=== PATIENT | male | born 1950 | race Caucasian/White ===

== ENCOUNTER 2019-08-21 09:54 | Outpatient (RCR) | payer MEDICARE | END 2019-08-25 | LOC: PT 09:54 | PROVIDERS: ATTEND Orthopaedic Surgery | DX: Z96.651 Presence of right artificial knee joint (principal); Z96.652 Presence of left artificial knee joint; M62.81 Muscle weakness (generalized); M25.561 Pain in right knee; M25.562 Pain in left knee ==

== ENCOUNTER → 2019-09-25 | Outpatient (RCR) | payer MEDICARE | LOC: PT 08-26 10:23 | PROVIDERS: ATTEND Orthopaedic Surgery | DX: M25.562 Pain in left knee (principal); M25.561 Pain in right knee; M62.81 Muscle weakness (generalized); Z96.652 Presence of left artificial knee joint; Z96.651 Presence of right artificial knee joint ==

== ENCOUNTER 2019-10-02 09:58 | Outpatient (RCR) | payer MEDICARE | END 2019-10-25 | LOC: PT 09:58 | PROVIDERS: ATTEND Orthopaedic Surgery | DX: Z96.652 Presence of left artificial knee joint (principal); Z96.651 Presence of right artificial knee joint; Z47.1 Aftercare following joint replacement surgery; M25.562 Pain in left knee; M25.561 Pain in right knee; M62.81 Muscle weakness (generalized) ==

== ENCOUNTER 2022-06-23 15:00 | Outpatient (RCR) | payer MEDICARE | END 2022-06-25 | LOC: PT 15:00 | PROVIDERS: ATTEND Orthopaedic Surgery | DX: Z96.653 Presence of artificial knee joint, bilateral (principal) ==

== ENCOUNTER → 2022-07-26 | Outpatient (RCR) | payer MEDICARE | LOC: PT 06-26 10:07 | PROVIDERS: ATTEND Orthopaedic Surgery | DX: Z96.653 Presence of artificial knee joint, bilateral (principal) ==

== ENCOUNTER 2022-08-04 14:57 | Outpatient (RCR) | payer MEDICARE | END 2022-08-25 | LOC: PT 14:57 | PROVIDERS: ATTEND Orthopaedic Surgery | DX: Z96.653 Presence of artificial knee joint, bilateral (principal); M62.81 Muscle weakness (generalized); R26.2 Difficulty in walking, not elsewhere classified ==

== ENCOUNTER 2025-02-01 23:50 | Inpatient (IN) | payer MEDICARE ==
[~2025-02-01] VITALS: Ht 167.6 cm; Wt 90.7 kg
[2025-02-01 23:59] VITALS: RESP 20; TEMP 98.3
[2025-02-02] VITALS (9 sets, daily range): BP systolic 137–161; BP diastolic 64–94; PULSE 71–104; RESP 18–20; TEMP 97.2–98.7; O2SAT 96–99
[2025-02-02] MEDS: Morphine 4mg INJECTION 4 MG/ML INJ IM STA (01:04)
[2025-02-02 02:33] LABS: TROPONIN I 0.002 ng/mL (0-0.300)
[2025-02-02] MEDS ORDERED: HUMULIN 70100 UNIT/1 SC ×3 (03:20→03:21)
[2025-02-02] MEDS ORDERED: ROSUVASTATIN CA10 MG PO (03:22)
[2025-02-02] MEDS ORDERED: LISINOPRIL10 MG PO (03:23)
[2025-02-02] MEDS ORDERED: FARXIGA10 MG PO (03:24)
[2025-02-02] MEDS ORDERED: TRICOR145 MG PO (03:25)
[2025-02-02] MEDS ORDERED: OMEGA 3 1,0001 EACH PO (03:26)
[2025-02-02] MEDS: SODIUM CHLORIDE 0.9% 1000ML 1,000 ML IV SCH (03:51)
[2025-02-02] MEDS: PIOGLITAZONE HCL 45 MG TAB PO SCH (13:23)
[2025-02-02] MEDS: SITAGLIPTIN 100 MG TAB PO SCH (13:23)
[2025-02-02] MEDS: Morphine 2mg Syringe 2 MG/ML SYR IV PRN (13:24)
[2025-02-02] MEDS: ONDANSETRON HCL INJ 2MG/ML 2ML 2 MG/ML VIAL IV PRN (13:24)
[2025-02-02] MEDS: LISINOPRIL 20 MG TAB PO SCH (13:24)
[2025-02-02 15:47] LABS: TROPONIN I 0.003 ng/mL (0-0.300)
[2025-02-02] MEDS: HYDROMORPHONE 2MG/ML IV PRN (16:56)
[2025-02-02] MEDS: HUMULIN 70/30 VIAL SQ SCH (17:14)
[2025-02-02] MEDS ORDERED: VASCEPA1 GM PO (21:34)
[2025-02-02] MEDS ORDERED: FLOMAX0.4 MG PO (21:35)
[2025-02-03] VITALS (7 sets, daily range): BP systolic 142–153; BP diastolic 58–76; PULSE 79–88; RESP 16–20; TEMP 97.9–99; O2SAT 95–98
[2025-02-03 05:17] LABS: BASOPHILS % 0.2 % (0.0-1.0); EOSINOPHILS # (AUTO) 0.1 (0.0-0.4); EOSINOPHILS % 0.5 % (0.0-6.0); HEMATOCRIT 33.7 % (38.2-49.6); HEMOGLOBIN 10.5 g/dL (14.0-18.0); LYMPHOCYTES # (AUTO) 2.6 (1.0-3.2); MEAN CORPUSCULAR HEMOGLOBIN 26.9 pg (28-32); MEAN CORPUSCULAR HGB CONC 31.2 g/dL (31-35); MEAN CORPUSCULAR VOLUME 86.2 fL (81-99); MONOCYTES # (AUTO) 0.9 (0.2-0.8); NEUTROPHILS # (AUTO) 8.5 (2.1-6.9); NEUTROPHILS % 69.6 % (38.7-80.0); PLATELET COUNT 158 x10e3/uL (140-360); RED BLOOD COUNT 3.91 x10e6/uL (4.3-5.7); RED CELL DISTRIBUTION WIDTH 13.5 % (11.7-14.4); WHITE BLOOD COUNT 12.26 x10e3/uL (4.8-10.8)
[2025-02-03 05:44] LABS: ALBUMIN 3.4 g/dL (3.5-5.0); ALBUMIN/GLOBULIN RATIO 1.2 (0.8-2.0); ANION GAP 13.5 mmol/L (8-16); BILIRUBIN,TOTAL 0.6 mg/dL (0.2-1.2); CALCIUM 8.7 mg/dL (8.4-10.2); CREATININE, SERUM 1.25 mg/dL (0.72-1.25); POTASSIUM 4.5 mmol/L (3.5-5.1); TOTAL PROTEIN 6.3 g/dL (6.5-8.1)
[2025-02-03 06:12] LABS: TROPONIN I 0.013 ng/mL (0-0.300)
[2025-02-03] MEDS: FENOFIBRATE 145 MG TAB PO SCH (08:46)
[2025-02-03] MEDS: OMEGA 3 POLYUNSAT FATTY ACIDS 1000 MG SOFTGEL PO SCH (08:47)
[2025-02-03] MEDS ORDERED: DEXTROSE 50% SYRINGE 50 ML IV PRN (10:45)
[2025-02-03] MEDS: INSULIN LISPRO 100 UNIT/1 ML 3ML VIAL SQ SCH (11:30)
[2025-02-03] MEDS ORDERED: CYCLOBENZAPRINE HCL 10 MG TAB PO PRN (21:30)
[2025-02-04] VITALS (7 sets, daily range): BP systolic 136–155; BP diastolic 61–68; PULSE 80–94; RESP 16–20; TEMP 98–98.5; O2SAT 96–99
[2025-02-04 05:10] LABS: BASOPHILS % 0.3 % (0.0-1.0); EOSINOPHILS # (AUTO) 0.2 (0.0-0.4); EOSINOPHILS % 1.9 % (0.0-6.0); HEMATOCRIT 30.7 % (38.2-49.6); HEMOGLOBIN 9.7 g/dL (14.0-18.0); LYMPHOCYTES # (AUTO) 2.8 (1.0-3.2); LYMPHOCYTES % 26.7 % (18.0-39.1); MEAN CORPUSCULAR HEMOGLOBIN 26.9 pg (28-32); MEAN CORPUSCULAR HGB CONC 31.6 g/dL (31-35); MEAN CORPUSCULAR VOLUME 85.3 fL (81-99); MONOCYTES # (AUTO) 0.7 (0.2-0.8); MONOCYTES % 6.8 % (4.4-11.3); NEUTROPHILS # (AUTO) 6.6 (2.1-6.9); NEUTROPHILS % 63.9 % (38.7-80.0); PLATELET COUNT 193 x10e3/uL (140-360); RED CELL DISTRIBUTION WIDTH 13.5 % (11.7-14.4); WHITE BLOOD COUNT 10.38 x10e3/uL (4.8-10.8)
[2025-02-04 05:43] LABS: ANION GAP 14.5 mmol/L (8-16); CALCIUM 8.4 mg/dL (8.4-10.2); CREATININE, SERUM 1.42 mg/dL (0.72-1.25); POTASSIUM 4.5 mmol/L (3.5-5.1)
[2025-02-05 04:39] VITALS: BP 140/82; PULSE 82; RESP 18; TEMP 98.3; O2SAT 97
[2025-02-05 05:25] LABS: BASOPHILS % 0.3 % (0.0-1.0); EOSINOPHILS # (AUTO) 0.3 (0.0-0.4); EOSINOPHILS % 3.9 % (0.0-6.0); HEMATOCRIT 28.2 % (38.2-49.6); HEMOGLOBIN 9.1 g/dL (14.0-18.0); LYMPHOCYTES # (AUTO) 2.6 (1.0-3.2); LYMPHOCYTES % 32.9 % (18.0-39.1); MEAN CORPUSCULAR HEMOGLOBIN 27.1 pg (28-32); MEAN CORPUSCULAR HGB CONC 32.3 g/dL (31-35); MEAN CORPUSCULAR VOLUME 83.9 fL (81-99); MONOCYTES # (AUTO) 0.5 (0.2-0.8); MONOCYTES % 6.5 % (4.4-11.3); NEUTROPHILS # (AUTO) 4.5 (2.1-6.9); NEUTROPHILS % 56.1 % (38.7-80.0); PLATELET COUNT 198 x10e3/uL (140-360); RED BLOOD COUNT 3.36 x10e6/uL (4.3-5.7); RED CELL DISTRIBUTION WIDTH 13.3 % (11.7-14.4); WHITE BLOOD COUNT 7.99 x10e3/uL (4.8-10.8)
[2025-02-05 05:50] LABS: ANION GAP 14.1 mmol/L (8-16); CALCIUM 8.4 mg/dL (8.4-10.2); CREATININE, SERUM 1.07 mg/dL (0.72-1.25); POTASSIUM 4.1 mmol/L (3.5-5.1)
[2025-02-05 09:03] VITALS: BP 156/69; PULSE 79; RESP 18; TEMP 98.2; O2SAT 97
[2025-02-05 10:12] VITALS: BP 156/69; PULSE 79; RESP 18; TEMP 98.2; O2SAT 97
[2025-02-05] MEDS ORDERED: GADOBENATE DIMEGLUMINE 1 ML IV ONE (12:13)
[2025-02-05 12:16] VITALS: BP 150/66; PULSE 79; RESP 20; TEMP 97.9; O2SAT 96
[2025-02-05] MEDS: HYDROCODONE/APAP 5MG-325MG TAB PO PRN (12:18)
[2025-02-05] MEDS ORDERED: IOPAMIDOL 370 MG/ML 100 ML INFUS..BTL INJ ONE (12:34)
[2025-02-05 17:28] VITALS: BP 158/61; PULSE 74; RESP 20; TEMP 96.8; O2SAT 99
[2025-02-05 20:00] VITALS: BP 147/88; PULSE 79; RESP 20; TEMP 98.2; O2SAT 98
[2025-02-06] VITALS: BP 167/73; PULSE 85; RESP 18; TEMP 98.3; O2SAT 98
[2025-02-06 05:21] LABS: BASOPHILS % 0.4 % (0.0-1.0); EOSINOPHILS # (AUTO) 0.4 (0.0-0.4); EOSINOPHILS % 4.6 % (0.0-6.0); HEMATOCRIT 29.3 % (38.2-49.6); HEMOGLOBIN 9.3 g/dL (14.0-18.0); LYMPHOCYTES # (AUTO) 2.9 (1.0-3.2); LYMPHOCYTES % 33.5 % (18.0-39.1); MEAN CORPUSCULAR HGB CONC 31.7 g/dL (31-35); MEAN CORPUSCULAR VOLUME 84.9 fL (81-99); MONOCYTES # (AUTO) 0.5 (0.2-0.8); MONOCYTES % 6.3 % (4.4-11.3); NEUTROPHILS # (AUTO) 4.7 (2.1-6.9); PLATELET COUNT 203 x10e3/uL (140-360); RED BLOOD COUNT 3.45 x10e6/uL (4.3-5.7); RED CELL DISTRIBUTION WIDTH 13.2 % (11.7-14.4); WHITE BLOOD COUNT 8.56 x10e3/uL (4.8-10.8)
[2025-02-06 05:53] LABS: ALBUMIN 2.8 g/dL (3.5-5.0); BILIRUBIN,TOTAL 0.4 mg/dL (0.2-1.2); CALCIUM 8.5 mg/dL (8.4-10.2); CREATININE, SERUM 0.96 mg/dL (0.72-1.25); TOTAL PROTEIN 5.6 g/dL (6.5-8.1)
[2025-02-06 08:29] LABS: MAGNESIUM 1.8 MG/DL (1.3-2.1); PHOSPHORUS 2.7 MG/DL (2.3-4.7)
[2025-02-06 08:44] VITALS: BP 165/84; PULSE 71; RESP 17; TEMP 97.6; O2SAT 98
[2025-02-06 10:00] VITALS: BP 165/84; PULSE 71; RESP 17; TEMP 97.6; O2SAT 98
[2025-02-06 12:00] VITALS: BP 151/71; PULSE 79; RESP 18; TEMP 97.9; O2SAT 96
[2025-02-06 17:03] VITALS: BP 178/74; PULSE 73; RESP 19; TEMP 98.5; O2SAT 94
[2025-02-06 20:00] VITALS: BP 134/82; PULSE 80; RESP 18; TEMP 98.4; O2SAT 98
[2025-02-07 08:19] VITALS: BP 159/72; PULSE 74; RESP 18; TEMP 97.6; O2SAT 96
[2025-02-07 08:55] VITALS: BP 159/72; PULSE 74; RESP 18; TEMP 97.4; O2SAT 98
[2025-02-07 11:06] VITALS: BP 154/73; PULSE 78; RESP 18; TEMP 98.2; O2SAT 95
[2025-02-07] MEDS ORDERED: CYCLOBENZAPRINE10 MG PO (13:58)
[2025-02-07] MEDS ORDERED: SODIUM CHLORIDE50 M1 IV (13:58)
[2025-02-07] MEDS ORDERED: JANUVIA100 MG PO (13:58)
[2025-02-07] MEDS ORDERED: ONDANSETRON4 MG/2 M1 IV (13:58)
[2025-02-07] MEDS ORDERED: Insulin Lispro SQ (13:58)
[2025-02-07] MEDS ORDERED: ACTOS45 MG PO (13:58)
[2025-02-07] MEDS ORDERED: DEXTROSE 50%-WA50 M1 IV (13:58)
[2025-02-07] MEDS ORDERED: HDR2V IV (13:58)
[2025-02-07] MEDS ORDERED: HYDROCODON-ACE1 EA11 PO (13:58)
== END 2025-02-07 16:45 | DRG 563 ==
LOC: ER 23:54 → ERHOLD 02-02 01:04 → MED/SURG 02-02 03:46
PROVIDERS: ADMIT Internal Medicine; ATTEND Internal Medicine
PROC: 2W38XYZ Immobilization of Right Upper Extremity using Other Device (ICD-10-PCS; principal; 2025-02-01)
DX: S42.211A Unspecified displaced fracture of surgical neck of right humerus, initial encounter for closed fracture (principal); S32.591A Other specified fracture of right pubis, initial encounter for closed fracture; R62.7 Adult failure to thrive; S42.251A Displaced fracture of greater tuberosity of right humerus, initial encounter for closed fracture; E11.9 Type 2 diabetes mellitus without complications; I10 Essential (primary) hypertension; E78.00 Pure hypercholesterolemia, unspecified; S73.191A Other sprain of right hip, initial encounter; M25.561 Pain in right knee; F03.A0 Unspecified dementia, mild, without behavioral disturbance, psychotic disturbance, mood disturbance, and anxiety; Z79.4 Long term (current) use of insulin; W18.09XA Striking against other object with subsequent fall, initial encounter; Y92.481 Parking lot as the place of occurrence of the external cause; Z96.653 Presence of artificial knee joint, bilateral
CPT/HCPCS: 36415; 72148; 72192; 72197; 74177; 80048; 80053; 82550; 82948; 83036; 83735; 84100; 84443; 84484; 85025; 96372; 99252; 99284; J1171; J2270; J2405; J7030; Q9967

== ENCOUNTER 2025-02-12 13:28 | Inpatient (IN) | payer MEDICARE ==
[~2025-02-12] VITALS: Ht 167.6 cm; Wt 90.7 kg
[~2025-02-12 13:28] MED LIST: ACTOS45 MG PO; CYCLOBENZAPRINE10 MG PO; DEXTROSE 50%-WA50 M1 IV; FARXIGA10 MG PO; FLOMAX0.4 MG PO; HDR2V IV; HUMULIN 70100 UNIT/1 SC; HYDROCODON-ACE1 EA11 PO; Insulin Lispro SQ; JANUVIA100 MG PO; LISINOPRIL10 MG PO; OMEGA 3 1,0001 EACH PO; ONDANSETRON4 MG/2 M1 IV; ROSUVASTATIN CA10 MG PO; SODIUM CHLORIDE50 M1 IV; TRICOR145 MG PO; VASCEPA1 GM PO
[2025-02-12 14:49] LABS: BASOPHILS % 0.2 % (0.0-1.0); EOSINOPHILS % 7.4 % (0.0-6.0); HEMATOCRIT 34.8 % (38.2-49.6); HEMOGLOBIN 11.2 g/dL (14.0-18.0); LYMPHOCYTES # (AUTO) 2.8 (1.0-3.2); LYMPHOCYTES % 21.5 % (18.0-39.1); MEAN CORPUSCULAR HEMOGLOBIN 27.1 pg (28-32); MEAN CORPUSCULAR HGB CONC 32.2 g/dL (31-35); MEAN CORPUSCULAR VOLUME 84.1 fL (81-99); MONOCYTES # (AUTO) 0.7 (0.2-0.8); MONOCYTES % 5.1 % (4.4-11.3); NEUTROPHILS # (AUTO) 8.6 (2.1-6.9); NEUTROPHILS % 65.6 % (38.7-80.0); PLATELET COUNT 316 x10e3/uL (140-360); RED BLOOD COUNT 4.14 x10e6/uL (4.3-5.7); RED CELL DISTRIBUTION WIDTH 13.3 % (11.7-14.4); WHITE BLOOD COUNT 13.09 x10e3/uL (4.8-10.8)
[2025-02-12 15:08] LABS: INR 0.98; PARTIAL THROMBOPLASTIN TIME 28.6 seconds (23.8-35.5); PROTHROMBIN TIME 13.6 seconds (11.9-14.5)
[2025-02-12 15:17] LABS: ALBUMIN 3.6 g/dL (3.5-5.0); ALBUMIN/GLOBULIN RATIO 1.1 (0.8-2.0); ANION GAP 16.3 mmol/L (8-16); BILIRUBIN,TOTAL 0.5 mg/dL (0.2-1.2); CALCIUM 9.4 mg/dL (8.4-10.2); CREATININE, SERUM 1.55 mg/dL (0.72-1.25); POTASSIUM 4.3 mmol/L (3.5-5.1); TOTAL PROTEIN 6.9 g/dL (6.5-8.1)
[2025-02-12 15:23] LABS: TROPONIN I 0.011 ng/mL (0-0.300)
[2025-02-12] MEDS ORDERED: SODIUM CHLORIDE 0.9% 100 ML ONE (15:23)
[2025-02-12] MEDS ORDERED: IOPAMIDOL 370 MG/ML 100 ML INFUS..BTL INJ ONE (15:23)
[2025-02-12] MEDS ORDERED: SODIUM CHLORIDE 0.9% 1000ML 1,000 ML ONE (16:47)
[2025-02-12] MEDS: SODIUM CHLORIDE 0.9% 1000ML 1,000 ML IV STA (16:54)
[2025-02-12 17:33] LABS: BILIRUBIN,URINE NEGATIVE (NEGATIVE); CLARITY,URINE CLEAR (CLEAR); COLOR,URINE YELLOW (YELLOW); GLUCOSE, URINE 1+ (NEGATIVE); KETONES,URINE NEGATIVE (NEGATIVE); LEUKOCYTE ESTERASE ,URINE NEGATIVE (NEGATIVE); NITRITE,URINE NEGATIVE (NEGATIVE); PH,URINE 5 (5 - 7); PROTEIN,URINE DIPSTICK NEGATIVE (NEGATIVE); URINE UROBILINOGEN 0.2 mg/dL (0.2 - 1)
[2025-02-12] MEDS ORDERED: DEXTROSE 50% SYRINGE 50 ML IV PRN (17:45)
[2025-02-12] MEDS ORDERED: ONDANSETRON HCL INJ 2MG/ML 2ML 2 MG/ML VIAL IV PRN (17:45)
[2025-02-12 17:49] LABS: BACTERIA,URINE FEW /HPF; EPITHELIAL CELLS,URINE FEW /LPF; RBC,URINE 0-5 /HPF (0-5); WBC,URINE (MAN) 0-5 /HPF (0-5)
[2025-02-12] MEDS: SODIUM CHLORIDE 0.9% 1000ML 1,000 ML IV SCH (18:23)
[2025-02-12 18:30] VITALS: PULSE 82; RESP 19; TEMP 98
[2025-02-12 22:00] VITALS: BP 138/60; PULSE 75; RESP 18; TEMP 98.1; O2SAT 100
[2025-02-12] MEDS ORDERED: OZEMPIC0.25 MG/02 SC (22:12)
[2025-02-12] MEDS: INSULIN LISPRO 100 UNIT/1 ML 3ML VIAL SQ SCH (22:22)
[2025-02-13] VITALS (8 sets, daily range): BP systolic 124–145; BP diastolic 53–75; PULSE 68–83; RESP 18–20; TEMP 97.2–98.1; O2SAT 97–100
[2025-02-13 05:53] LABS: BASOPHILS % 0.2 % (0.0-1.0); EOSINOPHILS # (AUTO) 1.1 (0.0-0.4); EOSINOPHILS % 8.7 % (0.0-6.0); HEMATOCRIT 28.5 % (38.2-49.6); HEMOGLOBIN 9.3 g/dL (14.0-18.0); LYMPHOCYTES # (AUTO) 2.5 (1.0-3.2); LYMPHOCYTES % 20.6 % (18.0-39.1); MEAN CORPUSCULAR HEMOGLOBIN 27.4 pg (28-32); MEAN CORPUSCULAR HGB CONC 32.6 g/dL (31-35); MEAN CORPUSCULAR VOLUME 83.8 fL (81-99); MONOCYTES # (AUTO) 0.7 (0.2-0.8); MONOCYTES % 5.8 % (4.4-11.3); NEUTROPHILS # (AUTO) 7.8 (2.1-6.9); NEUTROPHILS % 64.3 % (38.7-80.0); PLATELET COUNT 272 x10e3/uL (140-360); RED CELL DISTRIBUTION WIDTH 13.4 % (11.7-14.4); WHITE BLOOD COUNT 12.09 x10e3/uL (4.8-10.8)
[2025-02-13 06:21] LABS: ALBUMIN 2.9 g/dL (3.5-5.0); ANION GAP 12.3 mmol/L (8-16); BILIRUBIN,TOTAL 0.4 mg/dL (0.2-1.2); CALCIUM 8.5 mg/dL (8.4-10.2); CREATININE, SERUM 1.26 mg/dL (0.72-1.25); POTASSIUM 4.3 mmol/L (3.5-5.1); TOTAL PROTEIN 5.7 g/dL (6.5-8.1)
[2025-02-13] MEDS: TAMSULOSIN HCL 0.4 MG CAP PO SCH (10:29)
[2025-02-13] MEDS: FENOFIBRATE 145 MG TAB PO SCH (10:29)
[2025-02-13] MEDS: SODIUM BICARBONATE 8.4% SYRING 50 ML in SODIUM CHLORIDE 0.45% 1,000 ML IV ONE (10:30)
[2025-02-13] MEDS: INSULIN GLARGINE 100 UNITS/ML VIAL SQ SCH (21:03)
[2025-02-14] VITALS (7 sets, daily range): BP systolic 105–160; BP diastolic 32–71; PULSE 57–83; RESP 16–20; TEMP 97.3–98.6; O2SAT 97–100
[2025-02-14 03:23] LABS: % IRON SATURATION 14 % (15-50); IRON 48 ug/dL (65-175); TOTAL IRON BINDING CAPACITY 339 ug/dL (261-478); TRANSFERRIN 242 mg/dL (174-364)
[2025-02-14 03:56] LABS: FOLATE 13.6 ng/mL (7.0-15.4)
[2025-02-14 06:28] LABS: BASOPHILS % 0.2 % (0.0-1.0); EOSINOPHILS # (AUTO) 1.1 (0.0-0.4); EOSINOPHILS % 11.6 % (0.0-6.0); HEMOGLOBIN 9.4 g/dL (14.0-18.0); LYMPHOCYTES # (AUTO) 2.4 (1.0-3.2); LYMPHOCYTES % 26.5 % (18.0-39.1); MEAN CORPUSCULAR HGB CONC 32.4 g/dL (31-35); MEAN CORPUSCULAR VOLUME 83.3 fL (81-99); MONOCYTES # (AUTO) 0.6 (0.2-0.8); MONOCYTES % 6.1 % (4.4-11.3); NEUTROPHILS # (AUTO) 5.1 (2.1-6.9); NEUTROPHILS % 55.3 % (38.7-80.0); PLATELET COUNT 279 x10e3/uL (140-360); RED BLOOD COUNT 3.48 x10e6/uL (4.3-5.7); RED CELL DISTRIBUTION WIDTH 13.2 % (11.7-14.4); WHITE BLOOD COUNT 9.16 x10e3/uL (4.8-10.8)
[2025-02-14 06:48] LABS: ALBUMIN/GLOBULIN RATIO 1.1 (0.8-2.0); ANION GAP 14.1 mmol/L (8-16); BILIRUBIN,TOTAL 0.4 mg/dL (0.2-1.2); CALCIUM 8.5 mg/dL (8.4-10.2); CREATININE, SERUM 1.04 mg/dL (0.72-1.25); POTASSIUM 4.1 mmol/L (3.5-5.1); TOTAL PROTEIN 5.7 g/dL (6.5-8.1)
[2025-02-14] MEDS ORDERED: BISACODYL 10 MG SUPP PR PRN (10:15)
[2025-02-14] MEDS: METRONIDAZOLE TP SCH (10:15)
[2025-02-14 16:59] LABS: HEMOGLOBIN 9.4 g/dL (14.0-18.0)
[2025-02-14] MEDS ORDERED: INSULIN ASPART 70/30 100 UNITS/ML VIAL SC SCH (21:00)
[2025-02-14] MEDS: CRESTOR 10MG PO SCH (22:06)
[2025-02-15] VITALS (7 sets, daily range): BP systolic 122–144; BP diastolic 58–77; PULSE 72–85; RESP 18; TEMP 97.6–98.4; O2SAT 96–100
[2025-02-15 06:39] LABS: BASOPHILS % 0.4 % (0.0-1.0); EOSINOPHILS # (AUTO) 1.1 (0.0-0.4); HEMATOCRIT 29.3 % (38.2-49.6); HEMOGLOBIN 9.5 g/dL (14.0-18.0); LYMPHOCYTES % 37.5 % (18.0-39.1); MEAN CORPUSCULAR HEMOGLOBIN 27.1 pg (28-32); MEAN CORPUSCULAR HGB CONC 32.4 g/dL (31-35); MEAN CORPUSCULAR VOLUME 83.5 fL (81-99); MONOCYTES # (AUTO) 0.5 (0.2-0.8); MONOCYTES % 6.2 % (4.4-11.3); NEUTROPHILS # (AUTO) 3.4 (2.1-6.9); NEUTROPHILS % 42.5 % (38.7-80.0); PLATELET COUNT 306 x10e3/uL (140-360); RED BLOOD COUNT 3.51 x10e6/uL (4.3-5.7); WHITE BLOOD COUNT 8.07 x10e3/uL (4.8-10.8)
[2025-02-15 07:23] LABS: ALBUMIN 3.1 g/dL (3.5-5.0); ALBUMIN/GLOBULIN RATIO 1.1 (0.8-2.0); ANION GAP 13.9 mmol/L (8-16); BILIRUBIN,TOTAL 0.3 mg/dL (0.2-1.2); CALCIUM 8.8 mg/dL (8.4-10.2); CREATININE, SERUM 0.98 mg/dL (0.72-1.25); MAGNESIUM 1.8 MG/DL (1.3-2.1); POTASSIUM 3.9 mmol/L (3.5-5.1); TOTAL PROTEIN 5.9 g/dL (6.5-8.1)
[2025-02-15] MEDS ORDERED: INSULIN ASPART 70/30 100 UNITS/ML VIAL SC SCH (07:30)
[2025-02-15] MEDS: SODIUM CHLORIDE 0.9% 250ML 250 ML ONE (08:11)
[2025-02-15] MEDS: IRON SUCROSE 100 MG in SODIUM CHLORIDE 0.9% 100 ML IV SCH (09:54)
[2025-02-15] MEDS: SENNOSIDES 8.6 MG TAB PO SCH (09:54)
[2025-02-15] MEDS: LISINOPRIL 20 MG TAB PO SCH (09:55)
[2025-02-15] MEDS: DOCUSATE SODIUM 100 MG CAP PO SCH (09:55)
[2025-02-16] VITALS (7 sets, daily range): BP systolic 124–157; BP diastolic 49–64; PULSE 70–81; RESP 17–20; TEMP 97.3–98.4; O2SAT 98–100
[2025-02-16] MEDS: CEPHALEXIN 500 MG CAP PO SCH (00:04)
[2025-02-16 05:54] LABS: BASOPHILS % 0.5 % (0.0-1.0); HEMATOCRIT 29.2 % (38.2-49.6); HEMOGLOBIN 9.3 g/dL (14.0-18.0); LYMPHOCYTES # (AUTO) 2.8 (1.0-3.2); LYMPHOCYTES % 34.8 % (18.0-39.1); MEAN CORPUSCULAR HEMOGLOBIN 26.8 pg (28-32); MEAN CORPUSCULAR HGB CONC 31.8 g/dL (31-35); MEAN CORPUSCULAR VOLUME 84.1 fL (81-99); MONOCYTES # (AUTO) 0.5 (0.2-0.8); MONOCYTES % 6.4 % (4.4-11.3); NEUTROPHILS # (AUTO) 3.6 (2.1-6.9); PLATELET COUNT 333 x10e3/uL (140-360); RED BLOOD COUNT 3.47 x10e6/uL (4.3-5.7); RED CELL DISTRIBUTION WIDTH 13.1 % (11.7-14.4); WHITE BLOOD COUNT 7.99 x10e3/uL (4.8-10.8)
[2025-02-16 06:15] LABS: ANION GAP 13.9 mmol/L (8-16); CALCIUM 8.8 mg/dL (8.4-10.2); CREATININE, SERUM 0.88 mg/dL (0.72-1.25); POTASSIUM 3.9 mmol/L (3.5-5.1)
[2025-02-16] MEDS: INSULIN ASPART 70/30 100 UNITS/ML VIAL SC SCH (21:36)
[2025-02-17] VITALS (8 sets, daily range): BP systolic 122–146; BP diastolic 52–73; PULSE 70–88; RESP 17–21; TEMP 97.4–98.9; O2SAT 98–100
[2025-02-17] MEDS: INSULIN ASPART 70/30 100 UNITS/ML VIAL SC SCH (08:48)
[2025-02-17] MEDS: ACETAMINOPHEN 325 MG TAB PO PRN (13:46)
[2025-02-18] VITALS (7 sets, daily range): BP systolic 118–158; BP diastolic 50–80; PULSE 77–85; RESP 16–22; TEMP 97.6–98.2; O2SAT 98–100
[2025-02-18] MEDS ORDERED: B-COMPLEX PLU400 MCG PO (13:16)
[2025-02-18] MEDS ORDERED: DULCOLAX SUPP10 MG PR (13:16)
[2025-02-18] MEDS ORDERED: ACETAMINOPHEN325 M1 PO (13:16)
[2025-02-18] MEDS ORDERED: Docusate Sodium PO (13:16)
[2025-02-18] MEDS ORDERED: FEROSUL325 MG PO (13:16)
[2025-02-18] MEDS ORDERED: CEPHALEXIN500 MG PO (13:16)
[2025-02-18] MEDS ORDERED: ONDANSETRON HCL 4 MG ORAL DISINTEGRATING TAB PO PRN (13:45)
[2025-02-19] VITALS: BP 103/68; PULSE 73; RESP 18; TEMP 98.1; O2SAT 98
[2025-02-19 04:00] VITALS: BP 136/63; PULSE 80; RESP 18; TEMP 97.6; O2SAT 96
[2025-02-19 08:54] VITALS: BP 126/61; PULSE 69; RESP 16; TEMP 98.2; O2SAT 100
[2025-02-19 08:59] LABS: BASOPHILS % 0.4 % (0.0-1.0); EOSINOPHILS # (AUTO) 0.8 (0.0-0.4); EOSINOPHILS % 7.1 % (0.0-6.0); HEMATOCRIT 31.7 % (38.2-49.6); HEMOGLOBIN 10.1 g/dL (14.0-18.0); LYMPHOCYTES % 27.1 % (18.0-39.1); MEAN CORPUSCULAR HEMOGLOBIN 26.6 pg (28-32); MEAN CORPUSCULAR HGB CONC 31.9 g/dL (31-35); MEAN CORPUSCULAR VOLUME 83.6 fL (81-99); MONOCYTES # (AUTO) 0.7 (0.2-0.8); MONOCYTES % 6.8 % (4.4-11.3); NEUTROPHILS # (AUTO) 6.4 (2.1-6.9); NEUTROPHILS % 58.1 % (38.7-80.0); PLATELET COUNT 331 x10e3/uL (140-360); RED BLOOD COUNT 3.79 x10e6/uL (4.3-5.7); RED CELL DISTRIBUTION WIDTH 12.9 % (11.7-14.4); WHITE BLOOD COUNT 10.94 x10e3/uL (4.8-10.8)
[2025-02-19] MEDS: POLYETHYLENE GLYCOL 3350 17 GM PACK PO PRN (09:24)
[2025-02-19 12:00] VITALS: BP 125/62; PULSE 73; RESP 16; TEMP 98.8; O2SAT 100
== END 2025-02-19 13:21 | DRG 377 ==
LOC: ER 14:16 → ERHOLD 17:41 → MED/SURG3 21:09
PROVIDERS: ADMIT Internal Medicine; ATTEND Internal Medicine
PROC: 0T9B70Z Drainage of Bladder with Drainage Device, Via Natural or Artificial Opening (ICD-10-PCS; principal; 2025-02-12)
DX: K62.5 Hemorrhage of anus and rectum (principal); G93.41 Metabolic encephalopathy; E11.65 Type 2 diabetes mellitus with hyperglycemia; D50.0 Iron deficiency anemia secondary to blood loss (chronic); E78.5 Hyperlipidemia, unspecified; A46 Erysipelas; F03.A0 Unspecified dementia, mild, without behavioral disturbance, psychotic disturbance, mood disturbance, and anxiety; I10 Essential (primary) hypertension; K64.8 Other hemorrhoids; R33.9 Retention of urine, unspecified; K62.89 Other specified diseases of anus and rectum; N28.9 Disorder of kidney and ureter, unspecified; F09 Unspecified mental disorder due to known physiological condition; R53.81 Other malaise; K59.00 Constipation, unspecified; S32.509D Unspecified fracture of unspecified pubis, subsequent encounter for fracture with routine healing; S42.201D Unspecified fracture of upper end of right humerus, subsequent encounter for fracture with routine healing; W17.89XD Other fall from one level to another, subsequent encounter; Z79.4 Long term (current) use of insulin; Z79.84 Long term (current) use of oral hypoglycemic drugs; Z87.891 Personal history of nicotine dependence
CPT/HCPCS: 36415; 51700; 71045; 74174; 80048; 80053; 81001; 82607; 82728; 82746; 82948; 83540; 83735; 84466; 84484; 85014; 85018; 85025; 85045; 85610; 85730; 86850; 86900; 87086; 93005; 94799; 96372; 99252; 99284; J1756; J1815; J2543; J7030; J7050; Q9967